=== PATIENT | female | born 1965 | race Caucasian/White ===

== ENCOUNTER 2020-08-09 17:08 | Emergency (ER) | payer MEDICAID ==
[~2020-08-09] VITALS: Ht 170.2 cm; Wt 68.0 kg
--- NOTE | 2020-08-09 17:30 | NUR ---
NAUSEA AND VOMITING, BODYACHES SINCE 0500. PATIENT A/OX4, BREATHING EVEN AND UNLABORED, NO SOB NOTED. NEEDS ATTENDED, ATTACHED TO THE BATH MIXER.
[2020-08-09 17:56] LABS: BASOPHILS % (AUTO) 0.2 % (0.0-2.0); HEMATOCRIT 40 % (33-45); HEMOGLOBIN 13.4 g/dL (11.5-14.8); LYMPHOCYTES # (AUTO) 0.3 /CMM (0.8-4.8); LYMPHOCYTES % (AUTO) 3.5 % (20.0-44.0); MEAN CORPUSCULAR HGB CONC 34 g/dl (31.0-36.0); MEAN CORPUSCULAR VOLUME 94 fL (82-100); MONOCYTES # (AUTO) 0.4 /CMM (0.1-1.30); MONOCYTES % (AUTO) 5.7 % (2.0-12.0); NEUTROPHILS % (AUTO) 90.6 % (43.0-81.0); PLATELET COUNT (AUTO) 266 /CMM (150-450); RED BLOOD CELL COUNT(AUTO) 4.23 MIL/uL (4.0-5.2); WHITE BLOOD COUNT (AUTO) 7.7 K/uL (4.3-11.0)
[2020-08-09] MEDS ORDERED: KETOROLAC TROMETHAMINE 15 MG/ML VIAL ONE (17:57)
[2020-08-09] MEDS ORDERED: ONDANSETRON HCL/PF 4 MG/2 ML VIAL ONE (17:57)
[2020-08-09] MEDS ORDERED: IV NS 0.9% 1,000 ML BAG IV ONE (18:00)
[2020-08-09] MEDS ORDERED: KETOROLAC TROMETHAMINE INJ 30 MG/ML VIAL IV ONE (18:00)
[2020-08-09] MEDS ORDERED: ONDANSETRON HCL/PF 4 MG/2 ML VIAL IVP ONE (18:00)
--- NOTE | 2020-08-09 18:00 | NUR ---
IV LINE ESTABLISHED, BLOOD DRAWN AND SENT TO LAB.
[2020-08-09 18:05] LABS: CALCIUM, SERUM 8.9 mg/dL (8.5-10.1); CREATININE 0.7 mg/dL (0.6-1.3); POTASSIUM 3.4 mmol/L (3.5-5.1)
[2020-08-09 18:11] LABS: ALBUMIN 3.6 g/dL (3.4-5.0); BILIRUBIN,DIRECT 0.1 mg/dL (0.0-0.2); BILIRUBIN,TOTAL 0.6 mg/dL (0.2-1.0); TOTAL PROTEIN, SERUM 7.5 g/dL (6.4-8.2)
[2020-08-09 18:20] LABS: APPEARANCE,URINE Clear (CLEAR); BILIRUBIN,URINE SMALL (NEGATIVE); BLOOD, URINE Trace-lysed Ery/uL (NEGATIVE); COLOR,URINE Yellow (YELLOW); KETONES,URINE 80 (NEGATIVE); LEUKOCYTE ESTERASE ,URINE Trace (NEGATIVE); NITRITE, URINE Negative (NEGATIVE); PH,URINE 5.5 (5.0-8.0); PROTEIN,URINE Trace mg/dl (NEGATIVE); UGLUCOSE Negative (NEGATIVE); UROBILINOGEN,URINE 0.2 EU/dL (0.2)
[2020-08-09 18:37] LABS: BACTERIA,URINE Few /HPF (None Seen); SQUAMOUS EPITHELIAL CELL,UR Few /HPF (None Seen)
[2020-08-09] MEDS ORDERED: POTASSIUM CHLORIDE 20 MEQ TAB.PRT.SR PO ONE ×2 (18:43→19:00)
--- NOTE | 2020-08-09 19:10 | NUR ---
IV removed. Catheter intact and site benign. Pressure and 4x4 applied to site. No bleeding noted.Patient discharged to home in stable condition. Written and verbal after care instructions given. Patient verbalizes understanding of instruction. Waiting for to pick her up.
[2020-08-09 19:12] VITALS: BP 128/65
== END 2020-08-09 19:37 | disposition home or self-care (01) ==
LOC: ER 17:08
DX: R11.2 Nausea with vomiting, unspecified (principal); E87.6 Hypokalemia; Z20.828 Contact with and (suspected) exposure to other viral communicable diseases; E89.0 Postprocedural hypothyroidism
CPT/HCPCS: 36415; 80048; 80076; 81001; 83690; 84703; 85025; 96361; 96374; 96375; 99284; C9803; J1885; J2405; J7030; U0003; 81000-TC